=== PATIENT | female | born 1965 | race African-American/Black ===

== ENCOUNTER → 2016-06-22 | Outpatient (CLI) | payer OTHER ==
[~2016-06-22] MED LIST: ACTOS PO; ALTACE PO; CRESTOR10 MG PO; MEDROL DOSEPAK4 MG PO; NORCO 5/325 TAB1 TAB PO; ZOVIRAX800 MG PO; [UNRECOGNIZED DRUG - REMARK]
--- NOTE | ~2016-06-22 | MY11 ---
[facility] A Service of [facility] RADIOLOGY TEXT RESULTS PATIENT: ARIELLE FRANCIS LOCATION: [facility] : 67 UNIT #: [id number] AGE: [address]: Teena Olmos MD SEX: F ORDER DR: [id number] [facility] [address] [place], [place] [address] [id number] O MR#: [id number] Acc #: [id number] NAME: ARIELLE FRANCIS : 1965 SEX: F STUDY DATE/TIME: 06/22/2016 9:47 UNIT: [facility] ROOM: STUDY DESCRIPTION: MY Mammogram Screening Dig [facility] Attending Physician: Teena Olmos M.D. Ordering Physician: Teena Olmos M.D. Primary Care Physician: Teena Olmos M.D. MEDICAL IMAGING REPORT This report is preliminary unless electronic signature is present EXAM Digital screening mammogram, 06/22/2016, [facility]. HISTORY 50-year-old woman baseline mammogram. No risk elevation. COMPARISON None. FINDINGS Digital imaging of each breast was completed utilizing a two-view examination of each breast in craniocaudal and mediolateral-oblique projections. Review and interpretation of digital mammograms include a second review in conjunction with FDA-approved CAD device. There is a normal parenchymal presentation bilaterally consistent with the patient's age. There are no breast masses imaged and no parenchymal asymmetry is visualized. There are no suspicious microcalcifications and I see no focal architectural disturbance. IMPRESSION Negative screening digital mammogram. One-year followup recommended. Patients over the age of 40 are entered into a reminder system with target due date for the next mammogram. A result letter will also be sent to the patient. BIRADS: 1 Negative ADDENDUM Breast parenchyma is fatty replaced. [facility] A Service [facility] RADIOLOGY TEXT RESULTS PATIENT: ARIELLE FRANCIS LOCATION: [facility] : 67 UNIT #: [id number] AGE: [address]: Teena Olmos MD SEX: F ORDER DR: Dictated by... Larry Taylor M.D. THIS IS AN ELECTRONICALLY VERIFIED REPORT Larry Taylor M.D. at 06/22/2016 3:31 PM LOUISE/danielle TD: 06/22/2016 11:32 JOB #: [id number] MEDICAL IMAGING REPORT Page 1 of 1 COPY
== END | disposition home or self-care (01) ==
LOC: CWCC 09:26
DX: Z12.31 Encounter for screening mammogram for malignant neoplasm of breast (principal); R92.8 Other abnormal and inconclusive findings on diagnostic imaging of breast
CPT/HCPCS: G0202